=== PATIENT | male | born 1950 | race Caucasian/White ===

== ENCOUNTER 2018-11-03 17:19 | Inpatient (IN) ==
[2018-11-03 18:01] LABS: Hematocrit 31.6 % (42.0-52.0); Hemoglobin 10.7 gm/dL (13.5-18.0); Mean Cell Volume 95.2 fl (78-100); Mean Corpuscular Hemoglobin 32.2 pg (27-31); Mean Corpuscular Hgb Conc 33.9 g/dl (32-36); Mean Platelet Volume 10.5 fl (8-11.3); Neutrophil # 8.2 K/mm3 (1.3-6.0); Neutrophil % 83.8 % (42-75.0); Platelet Count 193 K/mm3 (150-450); Red Blood Count 3.32 M/mm3 (4.7-6.0); Red Cell Distribution Width 14.6 % (11.5-14.0); White Blood Count 9.8 K/mm3 (4.0-10.5)
--- NOTE | 2018-11-03 18:10 | ERNOTE ---
Neuro HPI ER Record Date of Service: 11/03/18 Presenting Symptoms: confusion Time Seen by Provider: 11/03/18 17:54 Source: patient, family Exam Limitations: clinical condition, dementia Immunizations: IMMUNIZATION HX Immunizations Up to Date Yes History of Influenza Vaccine Yes Hx Pneumococcal Vaccination Yes Allergies/Adverse Reactions: Allergies Allergy/AdvReac Type Severity Reaction Status Date / Time Sulfa (Sulfonamide AdvReac Intermediate Hives Verified 11/02/18 12:51 Antibiotics) Home Medications: HOME MEDICATIONS aspirin 81 mg tablet,delayed release 81 mg PO DAILY 03/08/18 [Last Taken Unknown] carbidopa ER 50 mg-levodopa 200 mg tablet,extended release 1 tab PO TID tab 03/08/18 [Last Taken Unknown] glipizide 10 mg tablet 10 mg PO DAILY #30 tab 05/13/18 [Last Taken Unknown] duloxetine 60 mg capsule,delayed release 60 mg PO DAILY #30 cap 05/14/18 [Last Taken Unknown] metformin 500 mg tablet 500 mg PO BIDWM #60 tab 05/14/18 [Last Taken Unknown] cholecalciferol (vitamin D3) 2,000 unit tablet 2,000 unit PO DAILY #30 tab 05/15/18 [Last Taken Unknown] melatonin 3 mg tablet 3 mg PO HS #30 tab 05/15/18 [Last Taken Unknown] atorvastatin 10 mg tablet 10 mg PO DAILY #28 tab 06/02/18 [Last Taken Unknown] memantine 5 mg tablet 5 mg PO DAILY #28 tab 06/02/18 [Last Taken Unknown] pramipexole 1 mg tablet 1.5 mg PO TID #126 tab 06/02/18 [Last Taken Unknown] tamsulosin 0.4 mg capsule 0.4 mg PO .COMPLEX #15 cap 06/02/18 [Last Taken Unknown] vitamin B complex tablet 1 tab PO DAILY #28 tab 06/02/18 [Last Taken Unknown] Tamsulosin HCl [Flomax] 0.4 mg PO DAILY@1800 #7 cap 07/08/18 [Last Taken Unknown] tramadol 50 mg tablet 50 mg PO QID PRN #20 tab 08/05/18 [Last Taken Unknown] blood-glucose meter See Dose Instructions .ROUTE .MEDSUPPLY #1 ea 08/27/18 [Last Taken Unknown] lancets 33 gauge See Dose Instructions .ROUTE .MEDSUPPLY #100 ea 08/27/18 [Last Taken Unknown] blood sugar diagnostic strips See Dose Instructions .ROUTE .MEDSUPPLY #100 ea 09/23/18 [Last Taken Unknown] polyethylene glycol 3350 17 gram/dose oral powder 17 g PO .COMPLEX #0 g 10/21/18 [Last Taken Unknown] acetaminophen 500 mg tablet 500 mg PO Q6H PRN #30 tab 10/27/18 [Last Taken Unknown] ondansetron HCl 4 mg tablet 4 mg PO Q6H PRN #30 tab 10/29/18 [Last Taken Unknown] loperamide 2 mg capsule 2 mg PO Q8H PRN #30 cap 11/02/18 [Last Taken Unknown] valacyclovir 1 gram tablet 1,000 mg PO TID 7 Days #21 tab 11/02/18 [Last Taken Unknown] - Pain Score Pain Score #1 Pain Score: 6 - History of Present Illness Narrative: The patient is a 67 year old male who presents for possible syncope vs seizure and increased tremors which has been present since this afternoon. There are associated symptoms of fatigue and confusion. The patient reports generalized body aches, 6/10. There are no alleviating factors. There are no aggravating factors. Previous treatments have included: none. The past medical history includes: Parkinson, HTN, CKD, DM, LEO, thrombocytopenia, Lewy body dementia. The social history is negative. The patient has had no known ill contacts. Patient brought from [facility] with concern for possible seizure activity. RN report that patient was seen sitting in chair and then eye rolled back and had episode of arm twitching. Family reports that tremors have also been more pronounced and patient having increased altered mentation. Review of Systems - Review of Systems Constitutional: Present: recent illness, fever, fatigue EYE: Present: no symptoms reported. Absent: vision changes ENT: Present: no symptoms reported. Absent: ear pain, nasal drainage, sore throat Respiratory: Present: cough. Absent: shortness of breath Cardiology: Present: no symptoms reported. Absent: chest pain Gastrointestinal/Abdominal: Present: no symptoms reported. Absent: vomiting, diarrhea Genitourinary: Present: no symptoms reported. Absent: frequency, dysuria Musculoskeletal: Present: muscle pain - generalized body aches Skin: Present: rash - left face dx with shingles Neurological: Present: tremors All Other Systems: All systems neg except as marked Medical History (Last Reviewed 11/03/18 @ 19:27 by YAMILET Kahn) Herpes zoster (Acute) Rash (Acute) Kalpesh had a shingles vaccine about 7 yrs ago. Now has an eruption on the L. face. Not painful but is vesicular eruption on an erythematous base and is dermatomally specific Urinary urgency (Chronic) History of pneumonia as indication for 23-polyvalent pneumococcal polysaccharide vaccine (Acute) CKD (chronic kidney disease) stage 3, GFR 30-59 ml/min (Chronic) Parkinson disease (Chronic) Hypertension (Acute) Lewy body dementia Chronic kidney disease Stage III Diabetes mellitus 2003 LEO (obstructive sleep apnea) uses CPAP Thrombocytosis greater than 10 years ago Surgical History: Surgical History (Last Reviewed 11/03/18 @ 19:27 by YAMILET Kahn) H/O colonoscopy 2010-WNL History of hernia repair [place] x2 Family History: Family History (Last Reviewed 11/03/18 @ 19:27 by YAMILET Kahn) Brother Heart valve replaced Father , age 84 Prostate CA Mother Hypertension Social History: Preferred Language Nepalese Do you have any scientologist or Yes: christian cultural preference? Smoking Status Never smoker Abuse History No History of abuse Psych History No pertinent hx Alcohol Use none (Last Updated 11/02/18 @ 17:10 by Josh Valdes DO) No Social History Section defined Physical Exam - Physical Exam General Appearance: Present: wd/wn, alert, moderate distress Head Exam: Present: other - herpetic lesions to left face consistent with shingles Eye Exam: Normal inspection: bilateral, PERRL: bilateral, EOMI: bilateral Ears, Nose, Throat: Present: normal ENT inspection, normal pharynx Neck: Present: normal inspection Respiratory: Present: no respiratory distress, normal breath sounds, no accessory muscle use, lungs clear Cardiovascular/Chest: Present: no murmur, tachycardia Gastrointestinal/Abdominal: Present: normal bowel sounds, nontender, nondistended, soft, no organomegaly Neurological Exam: Present: alert, normal mood/affect, other - tremors movement to 4 extremities. Absent: disoriented to situation Skin Exam: Present: normal color, warm/dry Lissa Coma Scale - Assess Eye Opening: Spontaneous Motor: Obeys Commands Verbal: Confused - Total Coma Scale Total: 14 Progress - Date and Time Seen: Date and Time: 11/03/18 20:14 Discussed case with will admitted. 11/03/18 21:32 Discussed administration of fluids due to hypotension as well as initiation of Rocephin due to fever of unknown origin. - Results and Orders Patient's Lab Results:: I have reviewed the patient's lab results. - Vital Signs Patient's Vital Signs:: I have reviewed the patient's vital signs. Vital Signs: Vital Signs 11/03/18 17:39 Temperature 39.0 C H Pulse Rate 101 H Respiratory Rate 33 H Blood Pressure 167/69 H - EKG EKG #1 EKG: NSR - tachycardia, other - PACs EKG read: Reviewed by me - X-Ray X-Ray #1 X-Ray: chest Interpretation: Reviewed by me X-ray Comments: No acute cardiopulmonary abnormality. Reviewed with . - CT/Ultrasound CT/Ultrasound Narrative: Head CT, [facility] report reviewed. - Progress/Reassessment Chief Complaint: Seizure Activity Departure Clinical Impression: Moderate dehydration, Acute on chronic renal insufficiency, Parkinson disease, Fever of unknown origin Shingles Qualifiers: Herpes zoster complications: without complications Qualified Code(s): B02.9 - Zoster without complications - Departure Disposition: Still a patient Condition: Fair
[2018-11-03] MEDS ORDERED: NORMAL SALINE 1,000 ML IV ONE ×3 (18:15→20:34)
[2018-11-03 18:19] LABS: Albumin * 3.8 gm/dl (3.4-5.0); Anion Gap 13.5 mmol/L (6.8-13.8); BUN/Creatinine Ratio 15.5 (9.0-21.6); Bilirubin, Total 0.9 mg/dL (0.0-1.1); Calcium * 9.2 mg/dL (7.9-10.9); Potassium 4.5 mmol/L (3.4-4.6); Total Protein 7.5 gm/dL (6.2-8.2)
[2018-11-03] MEDS ORDERED: ACETAMINOPHEN 500 MG TABLET PO ONE (18:23)
[2018-11-03] MEDS ORDERED: DEXTROSE 50%-WATER 50 ML SYRG IV ONE (18:26)
[2018-11-03] MEDS ORDERED: DEXTROSE 50%-WATER 50 ML SYRG ONE (18:26)
[2018-11-03 19:41] LABS: Urine Bilirubin Negative (NEGATIVE); Urine Blood Negative /ul (NEGATIVE); Urine Ketone 5 mg/dL (NEGATIVE); Urine Nitrite Negative (NEGATIVE); Urine Protein 15 mg/dL (NEGATIVE); Urine Specific Gravity >=1.030 SP.GR. (1.005-1.030); Urine Urobilinogen Normal (NORMAL); Urine pH 5.5 pH (5.0-7.0)
[2018-11-03 19:53] LABS: Urine Appearance Clear (CLEAR); Urine Bacteria TRACE; Urine Color Yellow; Urine RBC None Seen /hpf (0-5); Urine WBC 0-5 /hpf (0-5)
[2018-11-03] MEDS ORDERED: cefTRIAXone SODIUM 1,000 MG/100 ML BAG IV ONE (20:00)
[2018-11-03] MEDS ORDERED: ACETAMINOPHEN 500 MG TABLET PO PRN (20:35)
[2018-11-03] MEDS ORDERED: LIDOCAINE HCL 50 ML VIAL IM ONE (20:39)
[2018-11-03] MEDS ORDERED: traMADol HCL 50 MG TABLET PO PRN (20:43)
[2018-11-03] MEDS ORDERED: ONDANSETRON HCL 4 MG TABLET PO PRN (20:43)
[2018-11-03] MEDS ORDERED: TAMSULOSIN HCL 0.4 MG CAP.SR.24H PO SCH (20:45)
[2018-11-03] MEDS ORDERED: PRAMIPEXOLE DI-HCL 0.5 MG TABLET PO SCH (21:30)
--- NOTE | 2018-11-03 21:48 | HP ---
Chief Complaint - Chief Complaint Date of Service: 11/03/18 Time of Service: 21:27 Chief Complaint: I had fever and weakness since this morning. History of Present Illness: 67-year-old male with past medical history of Parkinson's disease, hypertension, chronic kidney disease stage III, diabetes mellitus type 2, LEO, thrombocytopenia, Lewy body dementia, herpes zoster, was brought to the ER from the [facility] due to a possible syncopal versus seizure episode that occurred this afternoon while the patient was sitting in a chair, accompanied by worsening tremors. Patient's family reports that since the weekend he has been demonstrating worsening confusion and disorientation and has had several unexplained falls due to weakness. Patient was brought to the ER where dextrose check demonstrated a glucose level of 38, after which he had to be administered dextrose. Family denies sick contacts, but reported the patient was recently on antibiotics due to a tooth extraction and antivirals specifically acyclovir for shingles. Medical History (Last Reviewed 11/03/18 @ 19:27 by YAMILET Kahn) Herpes zoster (Acute) Rash (Acute) Kalpesh had a shingles vaccine about 7 yrs ago. Now has an eruption on the L. face. Not painful but is vesicular eruption on an erythematous base and is dermatomally specific Urinary urgency (Chronic) History of pneumonia as indication for 23-polyvalent pneumococcal polysaccharide vaccine (Acute) CKD (chronic kidney disease) stage 3, GFR 30-59 ml/min (Chronic) Parkinson disease (Chronic) Hypertension (Acute) Lewy body dementia Chronic kidney disease Stage III Diabetes mellitus 2004 LEO (obstructive sleep apnea) uses CPAP Thrombocytosis greater than 10 years ago Surgical History: Surgical History (Last Reviewed 11/03/18 @ 19:27 by YAMILET Kahn) H/O colonoscopy 2010-WNL History of hernia repair [place] x2 Family History: Family History (Last Reviewed 11/03/18 @ 19:27 by YAMILET Kahn) Brother Heart valve replaced Father , age 84 Prostate CA Mother Hypertension Social History: Preferred Language Estonian Do you have any congregation or Yes: jew cultural preference? Smoking Status Never smoker Abuse History No History of abuse Psych History No pertinent hx Alcohol Use none (Last Updated 11/02/18 @ 17:10 by Josh Valdes DO) No Social History Section defined Peds Patient Hx - Developmental: No Pertinent Hx Peds Patient Hx - Medical: No Pertinent Hx Peds Patient Hx - Cardiac/Respiratory: No Pertinent Hx Peds Patient Hx - Surgical: No Surgical History Patient History - Cancer: No Hx of Cancer Review Of Systems (GEN) - Review of Systems Generalized/Overall Review: Present: Weakness, Chills, Fever EENTM: Present: No Symptoms Reported Respiratory: Present: No Symptoms Reported Cardiac: Present: No Symptoms Reported Abdominal: Present: No Symptoms Reported Genitourinary: Present: No Symptoms Reported Musculoskeletal: Present: No Symptoms Reported Neurological: Present: Seizure, Tremors, Weakness, Pre-existing Deficit Skin: Present: Lesions - Vesicular lesions in a dermatomal fashion on the left side of face Endocrine: Present: No Symptoms Reported Immunizations: IMMUNIZATION HX Immunizations Up to Date Yes History of Influenza Vaccine Yes Hx Pneumococcal Vaccination Yes Allergies/Adverse Reactions: Allergies Allergy/AdvReac Type Severity Reaction Status Date / Time Sulfa (Sulfonamide AdvReac Intermediate Hives Verified 11/02/18 12:51 Antibiotics) Home Medications: HOME MEDICATIONS aspirin 81 mg tablet,delayed release 81 mg PO DAILY 03/08/18 [Last Taken Unknown] carbidopa ER 50 mg-levodopa 200 mg tablet,extended release 1 tab PO TID tab 03/08/18 [Last Taken Unknown] glipizide 10 mg tablet 10 mg PO DAILY #30 tab 05/13/18 [Last Taken Unknown] duloxetine 60 mg capsule,delayed release 60 mg PO DAILY #30 cap 05/14/18 [Last Taken Unknown] metformin 500 mg tablet 500 mg PO BIDWM #60 tab 05/14/18 [Last Taken Unknown] cholecalciferol (vitamin D3) 2,000 unit tablet 2,000 unit PO DAILY #30 tab 05/15/18 [Last Taken Unknown] melatonin 3 mg tablet 3 mg PO HS #30 tab 05/15/18 [Last Taken Unknown] atorvastatin 10 mg tablet 10 mg PO DAILY #28 tab 06/02/18 [Last Taken Unknown] memantine 5 mg tablet 5 mg PO DAILY #28 tab 06/02/18 [Last Taken Unknown] pramipexole 1 mg tablet 1.5 mg PO TID #126 tab 06/02/18 [Last Taken Unknown] tamsulosin 0.4 mg capsule 0.4 mg PO .COMPLEX #15 cap 06/02/18 [Last Taken Unknown] vitamin B complex tablet 1 tab PO DAILY #28 tab 06/02/18 [Last Taken Unknown] Tamsulosin HCl [Flomax] 0.4 mg PO DAILY@1800 #7 cap 07/08/18 [Last Taken Unknown] tramadol 50 mg tablet 50 mg PO QID PRN #20 tab 08/05/18 [Last Taken Unknown] blood-glucose meter See Dose Instructions .ROUTE .MEDSUPPLY #1 ea 08/27/18 [Last Taken Unknown] lancets 33 gauge See Dose Instructions .ROUTE .MEDSUPPLY #100 ea 08/27/18 [Last Taken Unknown] blood sugar diagnostic strips See Dose Instructions .ROUTE .MEDSUPPLY #100 ea 09/23/18 [Last Taken Unknown] polyethylene glycol 3350 17 gram/dose oral powder 17 g PO .COMPLEX #0 g 10/21/18 [Last Taken Unknown] acetaminophen 500 mg tablet 500 mg PO Q6H PRN #30 tab 10/27/18 [Last Taken Unknown] ondansetron HCl 4 mg tablet 4 mg PO Q6H PRN #30 tab 10/29/18 [Last Taken Unknown] loperamide 2 mg capsule 2 mg PO Q8H PRN #30 cap 11/02/18 [Last Taken Unknown] valacyclovir 1 gram tablet 1,000 mg PO TID 7 Days #21 tab 11/02/18 [Last Taken Unknown] Exam - Exam Vital Signs: Vital Signs - Last Taken Temp 37.5 C 11/03/18 20:21 Pulse 70 11/03/18 20:21 Resp 22 H 11/03/18 20:21 BP 89/41 L 11/03/18 20:21 Pulse Ox 93 11/03/18 20:21 Constitutional: Present: Alert, Cooperative, Well developed, Well nourished, No distress, Elderly ENT Exam: Present: normal ENT inspection, hearing grossly normal, pharynx normal , TMs normal Eye Exam: bilateral eye: normal inspection, PERRL, EOMI Neck: Present: non-tender, full range of motion, supple, normal inspection, trachea midline Back Exam: Present: normal inspection, no CVA tenderness, no vertebral tenderness Breasts: Present: Exam deferred Respiratory: Present: chest non-tender, lungs clear, normal breath sounds, no respiratory distress, no accessory muscle use Cardiovascular/Chest: Present: normal peripheral pulses, regular rate, rhythm, no chest tenderness, no edema, no gallop, no JVD, no murmur Peripheral Pulses: carotid (R): 3+, carotid (L): 3+, femoral (R): 3+, femoral (L): 3+ Abdomen: Present: Normal bowel sounds, soft, nontender, nondistended, no rebound tenderness, no hepatospenomegaly, no masses /Rectal: Present: Exam deferred Extremity: Present: normal range of motion, non-tender, normal inspection, no pedal edema, no calf tenderness Skin Exam: Present: normal color, warm/dry, no cyanosis, skin rash - Vesicular lesions in linear dermatomal fashion on left side of face. Lymphatic: Present: no adenopathy Neurologic: Present: alert, normal mood/affect, abnormal cerebellar tests Appearance: Present: appropriate appearance, neat, impaired recent memory Eye contact: Present: cooperative, good eye contact, normal speech Thoughts: Present: normal thought pattern, no apparent hallucination Diagnostic Studies: Abnormal Lab Results 11/03/18 11/03/18 11/03/18 Range/Units 18:00 18:00 19:35 RBC 3.32 L (4.7-6.0) M/mm3 Hgb 10.7 L (13.5-18.0) gm/dL Hct 31.6 L (42.0-52.0) % MCH 32.2 H (27-31) pg RDW 14.6 H (11.5-14.0) % Neutrophils % 83.8 H (42-75.0) % Lymphocytes % 8.1 L (20-51) % Neutrophils # 8.2 H (1.3-6.0) K/mm3 Lymphocytes # 0.80 L (1.5-3.5) k/mm3 BUN 47 H D (6-23) mg/dL Creatinine 3.03 H D (0.4-1.4) mg/dL Est GFR (Non-Af Amer) 22 L D (60-130) mL/min Random Glucose 38 L* (70-110) mg/dL ALT 1 L (19-67) U/L Urine Protein 15 H (NEGATIVE) mg/dL Laboratory Results WBC 9.8 K/mm3 (4.0-10.5) 11/03/18 18:00 RBC 3.32 M/mm3 (4.7-6.0) L 02/26/19 18:00 Hgb 10.7 gm/dL (13.5-18.0) L 11/03/18 18:00 Hct 31.6 % (42.0-52.0) L 11/03/18 18:00 MCV 95.2 fl (78-100) 11/03/18 18:00 MCH 32.2 pg (27-31) H 11/03/18 18:00 MCHC 33.9 g/dl (32-36) 11/03/18 18:00 RDW 14.6 % (11.5-14.0) H 11/03/18 18:00 Plt Count 193 K/mm3 (150-450) 11/03/18 18:00 MPV 10.5 fl (8-11.3) 11/03/18 18:00 Immature Gran % (Auto) 0.20 % (0.001-0.429) 11/03/18 18: Immature Gran # (Auto) 0.02 K/mm3 (0.000-0.0310) 11/03/18 18:00 Neutrophils % 83.8 % (42-75.0) H 11/03/18 18:00 Lymphocytes % 8.1 % (20-51) L 11/03/18 18:00 Monocytes % 6.7 % (0.0-9) 11/03/18 18:00 Eosinophils % 0.9 % (0.0-3.0) 11/03/18 18:00 Basophils % 0.3 % (0.0-1.0) 11/03/18 18:00 Nucleated RBC % 0.0 k/mm3 (0-1) 11/03/18 18:00 Neutrophils # 8.2 K/mm3 (1.3-6.0) H 11/03/18 18:00 Lymphocytes # 0.80 k/mm3 (1.5-3.5) L 11/03/18 18:00 Monocytes # 0.7 k/mm3 (0.0-1.0) 11/03/18 18:00 Eosinophils # 0.1 k/mm3 (0.0-0.7) 11/03/18 18:00 Absolute Basophils 0.0 k/mm3 (0.0-0.1) 11/03/18 18:00 Sodium 137 mmol/L (132-142) 11/03/18 18:00 Plasma Sodium 136 mmol/L (130-142) 11/03/18 18:00 Potassium 4.5 mmol/L (3.4-4.6) 11/03/18 18:00 Chloride 99 mmol/L (97-106) 11/03/18 18:00 Carbon Dioxide 29.0 mmol/L (24-32.6) 11/03/18 18:00 Anion Gap 13.5 mmol/L (6.8-13.8) 11/03/18 18:00 BUN 47 mg/dL (6-23) H D 11/03/18 18:00 Creatinine 3.03 mg/dL (0.4-1.4) H D 11/03/18 18:00 Est GFR (Non-Af Amer) 22 mL/min (60-130) L D 11/03/18 18:00 BUN/Creatinine Ratio 15.5 (9.0-21.6) 11/03/18 18:00 Random Glucose 38 mg/dL (70-110) L* 11/03/18 18:00 Lactic Acid, Venous 1.3 mmol/L (0.4-2.0) 11/03/18 18:00 Calcium 9.2 mg/dL (7.9-10.9) 11/03/18 18:00 Calcium Adj for Albumin 9.0 mg/dL (8.4-10.2) 11/03/18 18:00 Total Bilirubin 0.9 mg/dL (0.0-1.1) 11/03/18 18:00 AST 23 U/L (0-48) 11/03/18 18:00 ALT 1 U/L (19-67) L 11/03/18 18:00 Alkaline Phosphatase 113 U/L (50-170) 11/03/18 18:00 Total Protein 7.5 gm/dL (6.2-8.2) 11/03/18 18:00 Albumin 3.8 gm/dl (3.4-5.0) 11/03/18 18:00 Urine Color Yellow 11/03/18 19:35 Urine Appearance Clear (CLEAR) 11/03/18 19:35 Urine pH 5.5 pH (5.0-7.0) 11/03/18 19:35 Ur Specific Ralston >=1.030 SP.GR. (1.005-1.030) 11/03/18 19:35 Urine Protein 15 mg/dL (NEGATIVE) H 11/03/18 19:35 Urine Glucose (UA) Negative mg/dL (NEGATIVE) 11/03/18 19:35 Urine Ketones 5 mg/dL (NEGATIVE) 11/03/18 19:35 Urine Blood Negative /ul (NEGATIVE) 11/03/18 19:35 Urine Nitrate Negative (NEGATIVE) 11/03/18 19:35 Urine Bilirubin Negative mg/dl (NEGATIVE) 11/03/18 19:35 Prot Sulfosalicylic Acd Negative mg/dL (0) 11/03/18 19:35 Urine Urobilinogen Normal EU/dl (NORMAL) 11/03/18 19:35 Ur Leukocyte Esterase Negative /ul (NEGATIVE) 11/03/18 19:35 Urine RBC None seen /hpf (0-5) 11/03/18 19:35 Urine WBC 0-5 /hpf (0-5) 11/03/18 19:35 Ur Epithelial Cells None seen /hpf (0-5) 11/03/18 19:35 Urine Bacteria Trace (NONE) 11/03/18 19:35 Urine Culture Comments No culture indicated 11/03/18 19:35 Influenza Type A Ag Negative (NEGATIVE) 11/03/18 18:58 Influenza Type B Ag Negative (NEGATIVE) 11/03/18 18:58 Assessment/Plan - Narrative Narrative: Patient was evaluated in medical chart reviewed and given his signs and symptoms and clinical presentation decision to admit for SIRS was taken. Patient was found to be moderately dehydrated and had a fever upon arriving to the ER. He is also hypotensive and will require IV hydration and admission labs demonstrate an acute kidney injury superimposed on chronic kidney disease. Blood cultures were taken to evaluate for source of infection, which is evident on labs. Patient was found to have a leukocytosis with a left shift. Therefore given these facts patient will be treated with IV antibiotics covering for possible healthcare associated pneumonia. During his hospitalization he will continue treatment with acyclovir for herpes zoster that presented 3 days ago. We will continue his routine medications for his Parkinson's disease as well as other chronic diseases. We will watch patient closely for hypoglycemia and hypotension. - Assessment/Plan (1) Moderate dehydration Problem: Acute (2) Diabetes type 2, controlled Problem: Chronic Qualifiers: (3) SIRS (systemic inflammatory response syndrome) Problem: Acute (4) Acute kidney injury superimposed on CKD Problem: Acute (5) Hypoglycemia Problem: Acute (6) Parkinson disease Problem: Chronic (7) Syncope Problem: Acute
[2018-11-03] MEDS: ENOXAPARIN SODIUM 40 MG/0.4 ML SYRG SC SCH (22:55)
[2018-11-03] MEDS: CARBIDOPA/LEVODOPA CR 50/200 1 TAB TABLET.SA PO SCH (22:55)
[2018-11-03] MEDS: MELATONIN 3,000 MCG TABLET PO SCH (22:56)
[2018-11-03] MEDS: valACYclovir HCL 500 MG TABLET PO SCH (22:56)
[2018-11-04] MEDS: FAMOTIDINE 20 MG in DEXTROSE 5 % IN WATER 100 ML IV SCH ×6 (00:09→22:27)
[2018-11-04] MEDS ORDERED: DEXTROSE 5 % IN WATER 1,000 ML IV PRN (00:36)
[2018-11-04] MEDS ORDERED: DEXTROSE 50%-WATER 50 ML SYRG ONE ×2 (01:08→03:54)
[2018-11-04] MEDS ORDERED: DEXTROSE 50%-WATER 50 ML SYRG IV ONE ×4 (01:10→19:20)
[2018-11-04] MEDS ORDERED: DEXTROSE 50%-WATER 50 ML SYRG IV STA (01:12)
[2018-11-04 04:03] LABS: Hematocrit 35.2 % (42.0-52.0); Hemoglobin 11.5 gm/dL (13.5-18.0); Mean Cell Volume 96.4 fl (78-100); Mean Corpuscular Hemoglobin 31.5 pg (27-31); Mean Corpuscular Hgb Conc 32.7 g/dl (32-36); Mean Platelet Volume 10.3 fl (8-11.3); Neutrophil # 8.1 K/mm3 (1.3-6.0); Neutrophil % 75.3 % (42-75.0); Platelet Count 206 K/mm3 (150-450); Red Blood Count 3.65 M/mm3 (4.7-6.0); Red Cell Distribution Width 14.7 % (11.5-14.0); White Blood Count 10.8 K/mm3 (4.0-10.5)
[2018-11-04 04:17] LABS: Albumin * 3.2 gm/dl (3.4-5.0); BUN/Creatinine Ratio 16.5 (9.0-21.6); Bilirubin, Total 0.7 mg/dL (0.0-1.1); Ca. Corrected For Albumin 8.9 mg/dL (8.4-10.2); Calcium * 8.6 mg/dL (7.9-10.9); Carbon Dioxide 21.7 mmol/L (24-32.6); Potassium 4.7 mmol/L (3.4-4.6); Total Protein 6.9 gm/dL (6.2-8.2)
[2018-11-04] MEDS: DEXTROSE 10 % IN WATER 1,000 ML IV SCH ×2 (04:40→17:48)
[2018-11-04] MEDS ORDERED: glipiZIDE 10 MG TABLET PO SCH (07:00)
[2018-11-04] MEDS ORDERED: ACETAMINOPHEN WITH CODEINE 1 EACH TABLET PO PRN (08:40)
[2018-11-04] MEDS ORDERED: LOPERAMIDE HCL 2 MG CAPSULE PO PRN (08:40)
[2018-11-04] MEDS ORDERED: ACETAMINOPHEN 500 MG TABLET PO PRN (08:40)
[2018-11-04] MEDS ORDERED: ASPIRIN 81 MG TABLET.DR PO SCH (09:00)
[2018-11-04] MEDS ORDERED: ROSUVASTATIN CALCIUM 10 MG TABLET PO SCH ×2 (09:00→21:00)
[2018-11-04] MEDS ORDERED: PRAMIPEXOLE DI-HCL 0.5 MG TABLET PO SCH ×2 (09:00)
[2018-11-04] MEDS ORDERED: metFORMIN HCL 500 MG TABLET PO SCH (09:00)
[2018-11-04] MEDS: PENICILLIN V POTASSIUM 250 MG TABLET PO SCH ×4 (09:22→20:01)
[2018-11-04] MEDS: CHOLECALCIFEROL 1,000 UNIT CAPSULE PO SCH (09:23)
[2018-11-04] MEDS: PRAMIPEXOLE DI-HCL 0.5 MG TABLET PO SCH ×3 (09:23→17:15)
[2018-11-04] MEDS: CARBIDOPA/LEVODOPA CR 50/200 1 TAB TABLET.SA PO SCH ×3 (09:24→17:15)
[2018-11-04] MEDS: FINASTERIDE 5 MG TABLET PO SCH (09:24)
[2018-11-04] MEDS: ASPIRIN 81 MG TABLET.DR PO SCH (09:24)
[2018-11-04] MEDS: valACYclovir HCL 500 MG TABLET PO SCH ×3 (09:24→17:16)
[2018-11-04] MEDS: DULoxetine HCL 30 MG CAPSULE.SA PO SCH (09:24)
[2018-11-04] MEDS: VITAMIN B COMP W-C 1 TAB TABLET PO SCH (09:24)
[2018-11-04] MEDS: DOCUSATE SODIUM 100 MG CAPSULE PO SCH (09:25)
[2018-11-04] MEDS: DONEPEZIL HCL 10 MG TABLET PO SCH (09:25)
[2018-11-04] MEDS: POLYETHYLENE GLYCOL 3350 119 GM BTL PO SCH (09:25)
[2018-11-04] MEDS: MEMANTINE HCL 10 MG TABLET PO SCH (09:25)
--- NOTE | 2018-11-04 13:17 | PN ---
Subjective - Date and Time Seen Date: 11/04/18 Time: 12:30 Subjective Narrative: Kalpesh had either a sycopal or seizure or both episode yesterday. His blood sugar was found to be in the 30s. He was given Glucose IV and recovered. He continued to have low BSs this morning until about 11:00AM. He has no recollections of yesterday's events. He feels much better today. I suspect this has been precipitated by renal insufficnency, not clearing the sulfonoureas, being on m etformin with poor renal function, and his underlying dementia and being dry. BS just nowis down to 56 again. OJ given. Objective - Review of Systems Generalized/Overall Review: Reports: Weakness, Fatigue, Weight loss EENTM: Reports: No Symptoms Reported Respiratory: Reports: No Symptoms Reported Cardiac: Reports: No Symptoms Reported Abdominal: Reports: Constipation Genitourinary Symptoms: Reports: No Symptoms Reported Musculoskeletal Complaints: Reports: No Symptoms Reported Neurological: Reports: Weakness, Pre-existing Deficit - Reportedly has Lewi Body dementia Skin: Reports: No Symptoms Reported Endocrine: Reports: No Symptoms Reported, Excessive Sweating, Other - Low BSs on admissiion and have been rising and falling. - Vitals Vitals: Last Vital Signs Temp 37.4 C 11/04/18 08:45 Pulse 55 L 11/04/18 11:07 Resp 16 11/04/18 11:07 BP 126/46 11/04/18 11:07 Pulse Ox 94 11/04/18 11:07 - Abnormal Lab Findings Abnormal Lab Findings: Abnormal Lab Results 11/03/18 11/03/18 11/03/18 Range/Units 18:00 18:00 19:35 WBC (4.0-10.5) K/mm3 RBC 3.32 L (4.7-6.0) M/mm3 Hgb 10.7 L (13.5-18.0) gm/dL Hct 31.6 L (42.0-52.0) % MCH 32.2 H (27-31) pg RDW 14.6 H (11.5-14.0) % Immature Gran % (Auto) (0.001-0.429) % Immature Gran # (Auto) (0.000-0.0310) K/mm3 Neutrophils % 83.8 H (42-75.0) % Lymphocytes % 8.1 L (20-51) % Monocytes % (0.0-9) % Neutrophils # 8.2 H (1.3-6.0) K/mm3 Lymphocytes # 0.80 L (1.5-3.5) k/mm3 Monocytes # (0.0-1.0) k/mm3 Potassium (3.4-4.6) mmol/L Carbon Dioxide (24-32.6) mmol/L Anion Gap (6.8-13.8) mmol/L BUN 47 H D (6-23) mg/dL Creatinine 3.03 H D (0.4-1.4) mg/dL Est GFR (Non-Af Amer) 22 L D (60-130) mL/min Random Glucose 38 L* (70-110) mg/dL ALT 1 L (19-67) U/L Albumin (3.4-5.0) gm/dl Urine Protein 15 H (NEGATIVE) mg/dL 11/04/18 11/04/18 11/04/18 Range/Units 01:19 04:00 04:00 WBC 10.8 H (4.0-10.5) K/mm3 RBC 3.65 L (4.7-6.0) M/mm3 Hgb 11.5 L (13.5-18.0) gm/dL Hct 35.2 L (42.0-52.0) % MCH 31.5 H (27-31) pg RDW 14.7 H (11.5-14.0) % Immature Gran % (Auto) 0.60 H (0.001-0.429) % Immature Gran # (Auto) 0.06 H (0.000-0.0310) K/mm3 Neutrophils % 75.3 H (42-75.0) % Lymphocytes % 11.1 L (20-51) % Monocytes % 9.7 H (0.0-9) % Neutrophils # 8.1 H (1.3-6.0) K/mm3 Lymphocytes # 1.20 L (1.5-3.5) k/mm3 Monocytes # 1.1 H (0.0-1.0) k/mm3 Potassium 4.7 H (3.4-4.6) mmol/L Carbon Dioxide 21.7 L (24-32.6) mmol/L Anion Gap 19.0 H (6.8-13.8) mmol/L BUN 43 H (6-23) mg/dL Creatinine 2.61 H D (0.4-1.4) mg/dL Est GFR (Non-Af Amer) 26 L (60-130) mL/min Random Glucose 138 H D 42 L D (70-110) mg/dL ALT 3 L (19-67) U/L Albumin 3.2 L (3.4-5.0) gm/dl Urine Protein (NEGATIVE) mg/dL - EKG/Xray Findings EKG: NSR EKG read: Reviewed by me - Exam Constitutional: Present: Alert, Oriented x3, Cooperative, Elderly, Thin and frail ENT Exam: Present: normal ENT inspection, hearing grossly normal, pharynx normal, TMs normal, muffled/hoarse voice Neck: Present: non-tender, full range of motion, supple, normal inspection, trachea midline Breasts: Present: Nontender Respiratory: Present: chest non-tender, lungs clear, normal breath sounds, no respiratory distress, no accessory muscle use Cardiovascular/Chest: Present: normal peripheral pulses, regular rate, rhythm, no chest tenderness, no edema, no gallop, no JVD, no murmur, no rub Abdomen: Present: Normal bowel sounds, soft, nontender, nondistended, no rebound tenderness, no hepatospenomegaly, no masses /Rectal: Present: Exam deferred Extremity: Present: normal range of motion, non-tender, normal inspection, no pedal edema, no calf tenderness, normal capillary refill Skin Exam: Present: normal color, warm/dry, no cyanosis Lymphatic: Present: no adenopathy Neurologic: Present: 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 Absent: normal cerebellar test Appearance: Present: appropriate appearance, appropriate insight, neat, no memory impairment Eye contact: Present: cooperative, good eye contact, normal speech, avoids eye contact Thoughts: Present: normal thought pattern, no apparent hallucination Assessment/Plan Plan Narrative: Continue to check BSs hourly until stabilized. Check serum insulin and free insulin levels. (Send out and it will be a week getting it back. Need to R/o an insulinoma) Continue glucose IV. Check mroning lab. Progress activity as tolerated. - Problems/Diagnosis (1) Seizure Problem: Acute (2) Renal insufficiency Problem: Acute (3) Diabetes type 2, controlled Problem: Chronic Qualifiers: Diabetes mellitus complication status: with hypoglycemia (4) Dehydration Problem: Acute (5) CKD (chronic kidney disease) stage 3, GFR 30-59 ml/min Problem: Chronic (6) Abdominal pain Problem: Acute Qualifiers: Abdominal location: generalized Qualified Code(s): R10.84 - Generalized abdominal pain (7) Kidney stone on right side Problem: Acute
[2018-11-04] MEDS: TAMSULOSIN HCL 0.4 MG CAP.SR.24H PO SCH (17:16)
[2018-11-04] MEDS ORDERED: BISACODYL 5 MG TABLET.DR PO ONE (20:00)
[2018-11-04] MEDS: ENOXAPARIN SODIUM 40 MG/0.4 ML SYRG SC SCH (20:02)
[2018-11-04] MEDS: MELATONIN 3,000 MCG TABLET PO SCH (20:03)
[2018-11-05 05:30] LABS: Hemoglobin 10.2 gm/dL (13.5-18.0); Mean Cell Volume 95.4 fl (78-100); Mean Corpuscular Hemoglobin 31.4 pg (27-31); Mean Corpuscular Hgb Conc 32.9 g/dl (32-36); Neutrophil # 5.5 K/mm3 (1.3-6.0); Neutrophil % 72.1 % (42-75.0); Platelet Count 188 K/mm3 (150-450); Red Blood Count 3.25 M/mm3 (4.7-6.0); Red Cell Distribution Width 14.5 % (11.5-14.0); White Blood Count 7.7 K/mm3 (4.0-10.5)
[2018-11-05 06:23] LABS: Albumin * 2.6 gm/dl (3.4-5.0); Anion Gap 12.7 mmol/L (6.8-13.8); BUN/Creatinine Ratio 15.9 (9.0-21.6); Bilirubin, Total 0.5 mg/dL (0.0-1.1); Ca. Corrected For Albumin 8.9 mg/dL (8.4-10.2); Calcium * 8.1 mg/dL (7.9-10.9); Potassium 4.7 mmol/L (3.4-4.6)
[2018-11-05] MEDS: DEXTROSE 10 % IN WATER 1,000 ML IV SCH ×2 (07:00→17:17)
[2018-11-05] MEDS ORDERED: BISACODYL 10 MG SUPP.RECT RC ONE (08:00)
[2018-11-05] MEDS: PENICILLIN V POTASSIUM 250 MG TABLET PO SCH ×4 (09:33→20:22)
[2018-11-05] MEDS: DULoxetine HCL 30 MG CAPSULE.SA PO SCH (09:34)
[2018-11-05] MEDS: valACYclovir HCL 500 MG TABLET PO SCH ×3 (09:34→17:15)
[2018-11-05] MEDS: PRAMIPEXOLE DI-HCL 0.5 MG TABLET PO SCH ×3 (09:35→17:15)
[2018-11-05] MEDS: VITAMIN B COMP W-C 1 TAB TABLET PO SCH (09:36)
[2018-11-05] MEDS: FINASTERIDE 5 MG TABLET PO SCH (09:36)
[2018-11-05] MEDS: CARBIDOPA/LEVODOPA CR 50/200 1 TAB TABLET.SA PO SCH ×3 (09:37→17:16)
[2018-11-05] MEDS: MEMANTINE HCL 10 MG TABLET PO SCH (09:37)
[2018-11-05] MEDS: DOCUSATE SODIUM 100 MG CAPSULE PO SCH (09:37)
[2018-11-05] MEDS: DONEPEZIL HCL 10 MG TABLET PO SCH (09:38)
[2018-11-05] MEDS: ASPIRIN 81 MG TABLET.DR PO SCH (09:38)
[2018-11-05] MEDS: CHOLECALCIFEROL 1,000 UNIT CAPSULE PO SCH (09:38)
[2018-11-05] MEDS: FAMOTIDINE 20 MG in DEXTROSE 5 % IN WATER 100 ML IV SCH ×4 (11:05→22:32)
[2018-11-05] MEDS: TAMSULOSIN HCL 0.4 MG CAP.SR.24H PO SCH (17:17)
--- NOTE | 2018-11-05 18:14 | PN ---
Subjective - Date and Time Seen Date: 11/05/18 Time: 08:00 Subjective Narrative: Mr. Hoyos continued to have low blood sugars through the night. But early this morning they have been up in the 150-170 range. It appears his blood sugars may finally be stabilizing. He has no other complaints or requests. He has an outpatient CT scan of the abdomen and pelvis scheduled for tomorrow but that will have to be postponed. Objective - Review of Systems Generalized/Overall Review: Reports: Weakness EENTM: Reports: No Symptoms Reported Respiratory: Reports: No Symptoms Reported Cardiac: Reports: No Symptoms Reported Abdominal: Reports: No Symptoms Reported Genitourinary Symptoms: Reports: No Symptoms Reported Musculoskeletal Complaints: Reports: No Symptoms Reported Neurological: Reports: No Symptoms Reported Skin: Reports: No Symptoms Reported, Rash - Left side of face that has been diagnosed as herpes zoster and improving with therapy. Endocrine: Reports: Other - Sustained hypoglycemia in spite of large amounts of glucose being given IV and giving him sucrose orally. - Vitals Vitals: Last Vital Signs Temp 37.2 C 11/05/18 14:00 Pulse 61 11/05/18 14:00 Resp 18 11/05/18 14:00 BP 143/57 11/05/18 14:00 Pulse Ox 98 11/05/18 14:00 - Abnormal Lab Findings Abnormal Lab Findings: Abnormal Lab Results 11/04/18 11/05/18 11/05/18 Range/Units 19:29 05:00 05:00 RBC 3.25 L (4.7-6.0) M/mm3 Hgb 10.2 L (13.5-18.0) gm/dL Hct 31.0 L (42.0-52.0) % MCH 31.4 H (27-31) pg RDW 14.5 H (11.5-14.0) % Lymphocytes % 11.5 L (20-51) % Monocytes % 10.5 H (0.0-9) % Eosinophils % 5.1 H (0.0-3.0) % Lymphocytes # 0.88 L (1.5-3.5) k/mm3 Potassium 4.7 H (3.4-4.6) mmol/L BUN 38 H (6-23) mg/dL Creatinine 2.39 H (0.4-1.4) mg/dL Est GFR (Non-Af Amer) 29 L (60-130) mL/min Random Glucose 67 L D 151 H D (70-110) mg/dL ALT 12 L (19-67) U/L Total Protein 6.0 L (6.2-8.2) gm/dL Albumin 2.6 L (3.4-5.0) gm/dl - Exam Constitutional: Present: Alert, Oriented x3, Cooperative, Well developed, Well nourished, No distress ENT Exam: Present: normal ENT inspection, hearing grossly normal, pharynx no rmal, TMs normal Neck: Present: non-tender, full range of motion, supple, normal inspection Breasts: Present: Exam deferred Respiratory: Present: chest non-tender, lungs clear, normal breath sounds, no respiratory distress Cardiovascular/Chest: Present: normal peripheral pulses, regular rate, rhythm, no chest tenderness, no edema, no gallop, no JVD, no murmur, no rub Abdomen: Present: Normal bowel sounds, soft, nontender, nondistended, no rebound tenderness, no hepatospenomegaly, no masses /Rectal: Present: Exam deferred Extremity: Present: normal range of motion, non-tender, normal inspection, no pedal edema, no calf tenderness, normal capillary refill Skin Exam: Present: warm/dry, no cyanosis, cool/dry, diaphoresis, pallor, skin rash - Zoster eruption on the left side of the face is drying up and is not as inflamed. 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 Continue to monitor blood sugars hourly for the next 3 or 4 hours. If blood sugars remain stable without receiving IV glucose then I will change to checking blood sugars 4 times a day before meals and at bedtime this afternoon. 2. Continue with consistent carb diet for now. 3. He will not be resuming a sulfonylurea or metformin due to his renal status. 4. Continue with valacyclovir. The facial zoster eruption is drying and appears better and he states that it is feeling better and is less tender. 5. Anticipate discharge tomorrow unless we have more blood sugar issues. - Problems/Diagnosis (1) Seizure Problem: Acute Narrative: Probably related to hypoglycemia (2) Renal insufficiency Problem: Chronic (3) Diabetes type 2, controlled Problem: Chronic Qualifiers: Diabetes mellitus senior living insulin use: without joint terminal attack controller use Diabetes mellitus complication status: without complication Qualified Code(s): E11.9 - Type 2 diabetes mellitus without complications (4) Dehydration Problem: Resolved (5) CKD (chronic kidney disease) stage 3, GFR 30-59 ml/min Problem: Chronic (6) Abdominal pain Problem: Acute Qualifiers: Abdominal location: generalized Qualified Code(s): R10.84 - Generalized abdominal pain (7) Kidney stone on right side Problem: Acute
[2018-11-05] MEDS: ENOXAPARIN SODIUM 40 MG/0.4 ML SYRG SC SCH (20:21)
[2018-11-05] MEDS: MELATONIN 3,000 MCG TABLET PO SCH (20:22)
[2018-11-06 05:30] LABS: Hematocrit 32.7 % (42.0-52.0); Hemoglobin 10.9 gm/dL (13.5-18.0); Mean Cell Volume 93.7 fl (78-100); Mean Corpuscular Hemoglobin 31.2 pg (27-31); Mean Corpuscular Hgb Conc 33.3 g/dl (32-36); Mean Platelet Volume 10.6 fl (8-11.3); Neutrophil # 4.6 K/mm3 (1.3-6.0); Neutrophil % 69.3 % (42-75.0); Platelet Count 255 K/mm3 (150-450); Red Blood Count 3.49 M/mm3 (4.7-6.0); Red Cell Distribution Width 14.3 % (11.5-14.0); White Blood Count 6.7 K/mm3 (4.0-10.5)
[2018-11-06 05:41] LABS: Albumin * 2.8 gm/dl (3.4-5.0); Anion Gap 13.6 mmol/L (6.8-13.8); Bilirubin, Total 0.4 mg/dL (0.0-1.1); Ca. Corrected For Albumin 9.3 mg/dL (8.4-10.2); Calcium * 8.7 mg/dL (7.9-10.9); Potassium 4.6 mmol/L (3.4-4.6); Total Protein 6.6 gm/dL (6.2-8.2)
[2018-11-06] MEDS: MEMANTINE HCL 10 MG TABLET PO SCH (07:59)
[2018-11-06] MEDS: valACYclovir HCL 500 MG TABLET PO SCH ×2 (07:59→14:23)
[2018-11-06] MEDS: PRAMIPEXOLE DI-HCL 0.5 MG TABLET PO SCH ×2 (07:59→14:23)
[2018-11-06] MEDS: PENICILLIN V POTASSIUM 250 MG TABLET PO SCH ×2 (08:00→14:23)
[2018-11-06] MEDS: CHOLECALCIFEROL 1,000 UNIT CAPSULE PO SCH (08:00)
[2018-11-06] MEDS: DONEPEZIL HCL 10 MG TABLET PO SCH (08:00)
[2018-11-06] MEDS: VITAMIN B COMP W-C 1 TAB TABLET PO SCH (08:00)
[2018-11-06] MEDS: FINASTERIDE 5 MG TABLET PO SCH (08:01)
[2018-11-06] MEDS: ASPIRIN 81 MG TABLET.DR PO SCH (08:01)
[2018-11-06] MEDS: POLYETHYLENE GLYCOL 3350 119 GM BTL PO SCH (08:01)
[2018-11-06] MEDS: CARBIDOPA/LEVODOPA CR 50/200 1 TAB TABLET.SA PO SCH ×2 (08:01→14:23)
[2018-11-06] MEDS: DULoxetine HCL 30 MG CAPSULE.SA PO SCH (08:01)
[2018-11-06] MEDS: DOCUSATE SODIUM 100 MG CAPSULE PO SCH (08:01)
[2018-11-06] MEDS: FAMOTIDINE 20 MG in DEXTROSE 5 % IN WATER 100 ML IV SCH ×2 (09:03)
--- NOTE | 2018-11-06 09:13 | DS ---
(1) Seizure Problem: Acute (2) Renal insufficiency Problem: Chronic (3) Diabetes type 2, controlled Problem: Chronic Qualifiers: Diabetes mellitus senior care insulin use: without senior care use Diabetes mellitus complication status: without complication Qualified Code(s): E11.9 - Type 2 diabetes mellitus without complications (4) Dehydration Problem: Resolved (5) CKD (chronic kidney disease) stage 3, GFR 30-59 ml/min Problem: Chronic (6) Abdominal pain Problem: Acute Qualifiers: Abdominal location: generalized Qualified Code(s): R10.84 - Generalized abdominal pain (7) Kidney stone on right side Problem: Acute (8) Hypoglycemia associated with type 2 diabetes mellitus Problem: Acute (9) Herpes zoster Problem: Acute Qualifiers: Herpes zoster complications: without complications Qualified Code(s): B02.9 - Zoster without complications Description of Stay: Kalpesh Matta is a 67yo wh. male who had an apparant seizure at the [facility] and was brought ot the ER. His BS was in the low 30s and is probably the reason for the seizure. He has no antecedant seizure history. He was started on D10W IV fluids and also had to be given 50% glucose IV push to get his blood sugars just up to the 60s. The first 36 hours required aggressive glucose resuscitation to keep his blood sugars up. The last 24 hours his blood sugars are 130s-190s range. He has been on a sulfonylurea and metformin. Furthermore his renal insufficiency has acutely worsened into a stage IV category with a creatinine of about 2.6. He has not had any metformin or so following a rear since admission. He will no longer be able to take metformin because of his renal status and I will no longer allow him to have sulfonylureas because he is not clearing the drug which is what led to this severe hypoglycemic event. Furthermore he had shingles on the left side of his face in the day before his admission in the office where I prescribed valacyclovir for him. I do not know valacyclovir interfered with a clearance of his sulfonylurea but it was the only new change. He has continued taking valacyclovir here in the hospital and his zoster eruption on the left face is drying, is much less inflamed, and much more comfortable to Mr. Matta. Otherwise he has done well. He is alert and conversant and eating well. He has a parkinsonian-like tremor and has been diagnosed with Lewy body dementia. Since blood sugars have stabilized I will start him on a DPP 4 at a reduced dose because of his renal insufficiency. He will be discharged today to go back to the [facility]. He will have at [facility] home health and will have physical and occupational therapy to improve mobility and limb strengthening and improve ADL functioning. His last dose of penicillin is scheduled for this evening. His last dose of valacyclovir will be next Friday. Kalpesh Matta 1950 is homebound due to parkinsonian-like tremor, debilitation from his Lewy body dementia both of which lead to very poor mobility. The need for longterm is monitoring of meds, monitoring his zoster healing, and diabetic education and the need for physical therapy is for limb strengthening and improved mobility and the need for occupational therapy is improving his ADLs. Speech therapy to improve phonation. The need for home health care skilled services is directly related to the time spent [id number] with the person. Procedures Performed: none Results and Findings: Pending Mircobiology Results 11/03/18 18:30 Blood Blood Culture - Preliminary NO GROWTH AFTER 48 HOURS 11/03/18 18:00 Blood Blood Culture - Preliminary NO GROWTH AFTER 48 HOURS Lab Pending Results 11/03/18 18:00: WBC 9.8, RBC 3.32 L, Hgb 10.7 L, Hct 31.6 L, MCV 95.2, MCH 32.2 H, MCHC 33.9, RDW 14.6 H, Plt Count 193, MPV 10.5, Immature Gran % (Auto) 0.20, Immature Gran # (Auto) 0.02, Neutrophils % 83.8 H, Lymphocytes % 8.1 L, Monocytes % 6.7, Eosinophils % 0.9, Basophils % 0.3, Nucleated RBC % 0.0, Neutrophils # 8.2 H, Lymphocytes # 0.80 L, Monocytes # 0.7, Eosinophils # 0.1, Absolute Basophils 0.0 11/03/18 18:00: Sodium 137, Plasma Sodium 136, Potassium 4.5, Chloride 99, Carbon Dioxide 29.0, Anion Gap 13.5, BUN 47 H D, Creatinine 3.03 H D, Est GFR (Non-Af Amer) 22 L D, BUN/Creatinine Ratio 15.5, Random Glucose 38 L*, Calcium 9.2, Calcium Adj for Albumin 9.0, Total Bilirubin 0.9, AST 23, ALT 1 L, Alkaline Phosphatase 113, Total Protein 7.5, Albumin 3.8 11/03/18 18:00: Lactic Acid, Venous 1.3 11/03/18 18:58: Influenza Type A Ag Negative, Influenza Type B Ag Negative 11/03/18 19:35: Urine Color Yellow, Urine Appearance Clear, Urine pH 5.5, Ur Specific Hondo >=1.030, Urine Protein 15 H, Urine Glucose (UA) Negative, Urine Ketones 5, Urine Blood Negative, Urine Nitrate Negative, Urine Bilirubin Negative, Prot Sulfosalicylic Acd Negative, Urine Urobilinogen Normal, Ur Leukocyte Esterase Negative, Urine RBC None seen, Urine WBC 0-5, Ur Epithelial Cells None seen, Urine Bacteria Trace, Urine Culture Comments No culture indicated 11/04/18 01:19: Random Glucose 138 H D 11/04/18 04:00: WBC 10.8 H, RBC 3.65 L, Hgb 11.5 L, Hct 35.2 L, MCV 96.4, MCH 31.5 H, MCHC 32.7, RDW 14.7 H, Plt Count 206, MPV 10.3, Immature Gran % (Auto) 0.60 H, Immature Gran # (Auto) 0.06 H, Neutrophils % 75.3 H, Lymphocytes % 11.1 L, Monocytes % 9.7 H, Eosinophils % 3.0, Basophils % 0.3, Nucleated RBC % 0.0, Neutrophils # 8.1 H, Lymphocytes # 1.20 L, Monocytes # 1.1 H, Eosinophils # 0.3, Absolute Basophils 0.0 11/04/18 04:00: Sodium 139, Plasma Sodium 138, Potassium 4.7 H, Chloride 103, Carbon Dioxide 21.7 L, Anion Gap 19.0 H, BUN 43 H, Creatinine 2.61 H D, Est GFR (Non-Af Amer) 26 L, BUN/Creatinine Ratio 16.5, Random Glucose 42 L D, Calcium 8.6, Calcium Adj for Albumin 8.9, Total Bilirubin 0.7, AST 31, ALT 3 L, Alkaline Phosphatase 106, Total Protein 6.9, Albumin 3.2 L 11/04/18 05:00: Insulin Level 16.5 11/04/18 19:29: Random Glucose 67 L D 11/05/18 05:00: WBC 7.7 D, RBC 3.25 L, Hgb 10.2 L, Hct 31.0 L, MCV 95.4, MCH 31.4 H, MCHC 32.9, RDW 14.5 H, Plt Count 188, MPV 11.0, Immature Gran % (Auto) 0.40, Immature Gran # (Auto) 0.03, Neutrophils % 72.1, Lymphocytes % 11.5 L, Monocytes % 10.5 H, Eosinophils % 5.1 H, Basophils % 0.4, Nucleated RBC % 0.0, Neutrophils # 5.5, Lymphocytes # 0.88 L, Monocytes # 0.8, Eosinophils # 0.4, Absolute Basophils 0.0 11/05/18 05:00: Sodium 133, Plasma Sodium 134, Potassium 4.7 H, Chloride 100, Carbon Dioxide 25.0, Anion Gap 12.7, BUN 38 H, Creatinine 2.39 H, Est GFR (Non- Af Amer) 29 L, BUN/Creatinine Ratio 15.9, Random Glucose 151 H D, Calcium 8.1, Calcium Adj for Albumin 8.9, Total Bilirubin 0.5, AST 34, ALT 12 L, Alkaline Phosphatase 97, Total Protein 6.0 L, Albumin 2.6 L 11/06/18 05:15: Sodium 137, Plasma Sodium 138, Potassium 4.6, Chloride 102, Carbon Dioxide 26.0, Anion Gap 13.6, BUN 34 H, Creatinine 2.27 H, Est GFR (Non- Af Amer) 31 L, BUN/Creatinine Ratio 15.0, Random Glucose 139 H, Calcium 8.7, Calcium Adj for Albumin 9.3, Total Bilirubin 0.4, AST 21, ALT 4 L, Alkaline Phosphatase 99, Total Protein 6.6, Albumin 2.8 L 11/06/18 06:00: WBC 6.7, RBC 3.49 L, Hgb 10.9 L, Hct 32.7 L, MCV 93.7, MCH 31.2 H, MCHC 33.3, RDW 14.3 H, Plt Count 255, MPV 10.6, Immature Gran % (Auto) 0.30, Immature Gran # (Auto) 0.02, Neutrophils % 69.3, Lymphocytes % 13.8 L, Monocytes % 9.6 H, Eosinophils % 6.5 H, Basophils % 0.5, Nucleated RBC % 0.0, Neutrophils # 4.6, Lymphocytes # 0.92 L, Monocytes # 0.6, Eosinophils # 0.4, Absolute Basophils 0.0 Discharge Location: [facility] Disposition: Home Health Service [place] [facility] Agency: [facility] Condition: Fair Face to Face Encounter completed per [facility] Guidelines: Yes Discharge Activity: Activity as tolerated Discharge Diet: Consistent carbs Referrals: Josh Valdes DO [Primary Care Provider] - Additional Patient Instructions (free text): [facility] Health new at discharge- nursing and physical therapy. -Please make TCM appointment unless intermediate discharge. Thank you! Maeve @ [phone]. 1. Check blood sugars twice a day before meals breakfast and supper and any other time patient seems to be hypoglycemic. 2. See me in the office in [address] of the abdomen and pelvis as he has been rescheduled. Prescriptions (Any new or edited meds): Docusate Sodium [Colace] 100 mg PO DAILY #30 cap Penicillin V Potassium [Pen-Vee K] 500 mg PO QID #3 tab sitaGLIPtin PHOSPHATE [Januvia] 25 mg PO DAILY #30 tab valACYclovir HCL [Valtrex] 1,000 mg PO TID 7 Days #9 tab Complete Home Medications List: Complete Home Medication List: carbidopa ER 50 mg-levodopa 200 mg tablet,extended release 1 tab PO TID tab 03/08/18 duloxetine 60 mg capsule,delayed release 60 mg PO DAILY #30 cap 05/14/18 cholecalciferol (vitamin D3) 2,000 unit tablet 2,000 unit PO DAILY #30 tab 05/15/18 melatonin 3 mg tablet 3 mg PO HS #30 tab 05/15/18 atorvastatin 10 mg tablet 10 mg PO DAILY #28 tab 06/02/18 memantine 5 mg tablet 5 mg PO DAILY #28 tab 06/02/18 vitamin B complex tablet 1 tab PO DAILY #28 tab 06/02/18 Tamsulosin HCl [Flomax] 0.4 mg PO DAILY@1800 #7 cap 07/08/18 tramadol 50 mg tablet 50 mg PO QID PRN #20 tab 08/05/18 blood-glucose meter See Dose Instructions .ROUTE .MEDSUPPLY #1 ea 08/27/18 lancets 33 gauge See Dose Instructions .ROUTE .MEDSUPPLY #100 ea 08/27/18 blood sugar diagnostic strips See Dose Instructions .ROUTE .MEDSUPPLY #100 ea 09/23/18 acetaminophen 500 mg tablet 500 mg PO Q6H PRN #30 tab 10/27/18 ondansetron HCl 4 mg tablet 4 mg PO Q6H PRN #30 tab 10/29/18 loperamide 2 mg capsule 2 mg PO Q8H PRN #30 cap 11/02/18 Aspirin [Aspirin EC] 81 mg PO DAILY 11/03/18 Polyethylene Glycol 3350 [Miralax] 17 gm PO MOWEFR 11/03/18 Pramipexole Di-HCl [Pramipexole Dihydrochloride] 0.5 mg PO BID 11/03/18 Pramipexole Di-HCl [Pramipexole Dihydrochloride] 1.5 mg PO DAILY 11/03/18 Acetaminophen with Codeine [Acetaminophen-Cod #3 Tablet] 1 ea PO Q6H PRN 11/04/18 Donepezil HCl 10 mg PO DAILY 11/04/18 Finasteride [Proscar] 5 mg PO DAILY 11/04/18 Aspirin [Aspirin Enteric Coated] 81 mg PO DAILY tablet. 11/06/18 Docusate Sodium [Colace] 100 mg PO DAILY #30 cap 11/06/18 Penicillin V Potassium [Pen-Vee K] 500 mg PO QID #3 tab 11/06/18 sitaGLIPtin PHOSPHATE [Januvia] 25 mg PO DAILY #30 tab 11/06/18 valACYclovir HCL [Valtrex] 1,000 mg PO TID 7 Days #9 tab 11/06/18
[2018-11-06 12:46] VITALS: BP 140/70
== END 2018-11-06 13:00 | disposition home health service (06) | DRG 864 ==
LOC: ER 17:19 → MS 20:09
PROVIDERS: ADMIT Family Medicine; ATTEND Family Medicine
DX: B02.9 Zoster without complications; F02.80 Dementia in other diseases classified elsewhere, unspecified severity, without behavioral disturbance, psychotic disturbance, mood disturbance, and anxiety; E11.649 Type 2 diabetes mellitus with hypoglycemia without coma; R10.84 Generalized abdominal pain; E86.0 Dehydration; Z87.442 Personal history of urinary calculi; I12.9 Hypertensive chronic kidney disease with stage 1 through stage 4 chronic kidney disease, or unspecified chronic kidney disease; N20.0 Calculus of kidney; G31.83 Neurocognitive disorder with Lewy bodies; N17.8 Other acute kidney failure; R56.9 Unspecified convulsions; N18.4 Chronic kidney disease, stage 4 (severe); T38.3X5A Adverse effect of insulin and oral hypoglycemic [antidiabetic] drugs, initial encounter; R65.11 Systemic inflammatory response syndrome (SIRS) of non-infectious origin with acute organ dysfunction; Z79.84 Long term (current) use of oral hypoglycemic drugs
CPT/HCPCS: 36415; 70450; 71020; 71046; 80053; 81001; 82947; 83525; 83527; 83605; 85025; 87040; 87081; 87400; 87449; 93005; 96361; 96365; 96375; 97116; 97161; 97530; 99285